=== PATIENT | female | born 1995 | race Caucasian/White ===

== ENCOUNTER → 2017-09-18 13:19 | Outpatient (CLI) | payer SELFPAY ==
[2017-09-26 10:05] LABS: HPV Reflexed? NOT INDICATED
== END ==
PROVIDERS: Visit Provider Obstetrics & Gynecology
DX: Z12.4 Encounter for screening for malignant neoplasm of cervix (principal)
CPT/HCPCS: 88175; G0145

== ENCOUNTER → 2017-10-09 12:38 | Outpatient (CLI) | payer SELFPAY ==
[2017-10-09 14:22] LABS: HIV - WCH Non-Reactive (Nonreactive)
[2017-10-09 18:31] LABS: Chlamydia Trachomatis by PCR Negative (Negative); Neisserai gonorrhoeae by PCR Negative (Negative); Probe Check PASS; Sample Adequacy Control PASS; Specimen Processing Control PASS
[2017-10-11 03:47] LABS: Rapid Plasmin Reagin (RPR) NONREACTIVE (NONREACTIVE)
[2017-10-11 09:43] LABS: HEPATITIS B SURFACE AG Negative (Negative); HSV 1 IgG < 0.91 index (0.00-0.90); HSV 2 IgG < 0.91 index (0.00-0.90); Hep C Antibodies <0.1 s/co ratio (0.0-0.9)
== END ==
LOC: LAB 12:40 → LABSPEC 14:52
PROVIDERS: Visit Provider Obstetrics & Gynecology
DX: Z11.3 Encounter for screening for infections with a predominantly sexual mode of transmission (principal)
CPT/HCPCS: 36415; 86592; 86695; 86696; 86703; 86803; 87340; 87491; 87591

== ENCOUNTER → 2018-12-10 | Outpatient (CLI) | payer SELFPAY ==
[2018-12-10 19:56] LABS: Chlamydia Trachomatis by PCR Negative (Negative); Neisserai gonorrhoeae by PCR Negative (Negative); Probe Check PASS; Sample Adequacy Control PASS; Specimen Processing Control PASS
[2018-12-16 08:43] LABS: HPV Reflexed? NOT INDICATED
== END | disposition home or self-care (01) ==
LOC: LABSPEC 17:08
PROVIDERS: Visit Provider Obstetrics & Gynecology
DX: Z12.4 Encounter for screening for malignant neoplasm of cervix (principal); Z11.3 Encounter for screening for infections with a predominantly sexual mode of transmission
CPT/HCPCS: 87491; 87591; 87624; 88175; G0145

== ENCOUNTER → 2020-01-26 | Outpatient (CLI) | payer SELFPAY ==
[2019-11-24 11:57] VITALS: BMI 24.8
[2020-01-28 20:07] LABS: Chlamydia By Nucleic Acid AMP Negative (Negative)
[2020-01-28 20:44] LABS: Gonococcus By Nucleic Acid AMP Negative (Negative)
[2020-01-29 16:31] LABS: HPV Reflexed? NOT INDICATED
== END | disposition home or self-care (01) ==
LOC: LABSPEC 16:09
PROVIDERS: Visit Provider Obstetrics & Gynecology
DX: Z01.419 Encounter for gynecological examination (general) (routine) without abnormal findings (principal); Z12.4 Encounter for screening for malignant neoplasm of cervix; Z11.3 Encounter for screening for infections with a predominantly sexual mode of transmission
CPT/HCPCS: 87491; 87591; 88175; G0145

== ENCOUNTER 2021-05-10 13:34 | Outpatient (CLI) | payer SELFPAY ==
[2021-05-12 22:06] LABS: Chlamydia By Nucleic Acid AMP Negative (Negative)
[2021-05-13 16:12] LABS: Gonococcus By Nucleic Acid AMP Negative (Negative)
== END 2021-05-10 23:59 | disposition short-term general hospital (02) ==
LOC: LABSPEC 13:34
PROVIDERS: Visit Provider Obstetrics & Gynecology
DX: Z11.3 Encounter for screening for infections with a predominantly sexual mode of transmission (principal)
CPT/HCPCS: 87491; 87591